=== PATIENT | female | born 2000 ===

== ENCOUNTER 2024-03-05 14:00 | Outpatient (CLI) | payer OTHER | END 2024-03-05 14:05 | disposition home or self-care (01) | LOC: PRENATAL 14:00 | PROVIDERS: ATTEND Obstetrics & Gynecology Maternal & Fetal Medicine | DX: O36.80X0 Pregnancy with inconclusive fetal viability, not applicable or unspecified (principal); Z36.82 Encounter for antenatal screening for nuchal translucency; O34.219 Maternal care for unspecified type scar from previous cesarean delivery; Z36.9 Encounter for antenatal screening, unspecified; Z14.8 Genetic carrier of other disease; Z3A.14 14 weeks gestation of pregnancy ==

== ENCOUNTER → 2024-06-10 12:26 | Outpatient (CLI) | payer OTHER | END | disposition home or self-care (01) | LOC: PRENATAL 12:26 | PROVIDERS: ATTEND Obstetrics & Gynecology Maternal & Fetal Medicine | DX: O26.843 Uterine size-date discrepancy, third trimester (principal); O44.03 Complete placenta previa NOS or without hemorrhage, third trimester; O34.219 Maternal care for unspecified type scar from previous cesarean delivery; Z3A.28 28 weeks gestation of pregnancy ==

== ENCOUNTER 2024-08-01 09:00 | Outpatient (CLI) | payer OTHER | END 2024-08-01 09:01 | disposition home or self-care (01) | LOC: PRENATAL 09:00 | PROVIDERS: ATTEND Obstetrics & Gynecology Maternal & Fetal Medicine | DX: O26.849 Uterine size-date discrepancy, unspecified trimester (principal); O36.8199 Decreased fetal movements, unspecified trimester, other fetus; O34.219 Maternal care for unspecified type scar from previous cesarean delivery; Z3A.35 35 weeks gestation of pregnancy ==

== ENCOUNTER 2024-08-23 09:15 | Inpatient (IN) | payer OTHER ==
[~2024-08-23] VITALS: Ht 160 cm; Wt 3.2 kg
[2024-08-23 10:13] LABS: HEMATOCRIT 38.3 % (36.0-45.00); HEMOGLOBIN 13.2 g/dL (12.0-15.00); MEAN CELL VOLUME 85.7 fL (80.00-100.00); MEAN CORPUSCULAR HEMOGLOBIN 29.5 pg (27.00-32.0); MEAN CORPUSCULAR HGB CONC 34.4 g/dl (32.0-36.0); PLATELET COUNT 177 K/uL (150-450); RED BLOOD COUNT 4.47 M/uL (4.00-6.00); RED CELL DISTRIBUTION WIDTH 15.5 % (11.5-14.5)
[2024-08-23 10:23] LABS: PH,URINE 6.5 (5.0-8.0); URINE APPEARANCE Clear; URINE BILIRRUBIN Negative (NEGATIVE); URINE BLOOD Negative; URINE COLOR Yellow; URINE GLUCOSE Negative (NEGATIVE); URINE KETONE Negative (NEGATIVE); URINE LEUKOCYTE Negative; URINE NITRATE Negative; URINE PROTEIN Negative (NEGATIVE); URINE UROBILINOGEN 0.2 E.U./dl
[2024-08-23 10:24] LABS: URINE BACTERIA 710.6 uL (0.0-1933); URINE EPITHELIAL CELLS 11.5 uL (0.0-38.8); URINE RBC 2.7 uL (0.0-20.8)
[2024-08-23 10:41] LABS: INR 0.94; PARTIAL THROMBOPLASTIN TIME 28.3 SECONDS (22.0-34.0); PROTHROMBIN TIME 10.3 SECONDS (9.0-11.5)
[2024-08-27] MEDS ORDERED: PRENATAL + DHA1 EAC1 PO (07:11)
[2024-08-27] MEDS ORDERED: FOLIC ACID0.8 M1 PO (07:11)
[2024-08-27 07:13] VITALS: BP 117/80
[2024-08-27] MEDS ORDERED: CEFAZOLIN SODIUM 1,000 MG VIAL IV ONE (16:15)
[2024-08-27] MEDS ORDERED: OXYTOCIN 10 UNITS/ML VIAL IV ONE (16:15)
[2024-08-27] MEDS ORDERED: ERYTHROMYCIN BASE OPHT 1GM EACH TUBE OP ONE (16:15)
[2024-08-27] MEDS ORDERED: MORPHINE SULFATE 4 MG/ML VIAL IV ONE (17:45)
[2024-08-27] MEDS ORDERED: PROMETHAZINE HCL 50 MG/ML AMPUL IM PRN (18:00)
[2024-08-27] MEDS ORDERED: MEPERIDINE HCL/PF 50 MG/ML VIAL IM PRN (18:00)
[2024-08-27 19:20] VITALS: BP 118/77
[2024-08-28 02:01] VITALS: BP 129/82
[2024-08-28 05:53] VITALS: BP 118/81
[2024-08-28 06:19] LABS: HEMATOCRIT 36.6 % (36.0-45.00); HEMOGLOBIN 12.5 g/dL (12.0-15.00); MEAN CELL VOLUME 87.5 fL (80.00-100.00); MEAN CORPUSCULAR HEMOGLOBIN 29.9 pg (27.00-32.0); MEAN CORPUSCULAR HGB CONC 34.1 g/dl (32.0-36.0); PLATELET COUNT 143 K/uL (150-450); RED BLOOD COUNT 4.18 M/uL (4.00-6.00)
[2024-08-28] MEDS ORDERED: OxyCODONE HCL/APAP UD (PERCOCET) PO PRN (08:00)
[2024-08-28 08:59] VITALS: BP 129/80
[2024-08-28] MEDS ORDERED: DOCUSATE SODIUM 100MG CAP PO SCH (09:00)
[2024-08-28] MEDS ORDERED: SIMETHICONE 125 MG CAPSULE PO SCH (09:00)
[2024-08-28] MEDS ORDERED: PNV,CALCIUM 72/IRON/FOLIC ACID 1 TAB TABLET PO SCH (09:00)
[2024-08-28 16:00] VITALS: BP 116/80
[2024-08-29 02:40] VITALS: BP 117/70
[2024-08-29 08:59] VITALS: BP 120/67
[2024-08-29 12:50] VITALS: BP 119/79
[2024-08-29] MEDS ORDERED: FF) RHO(D) IMMUNE GLOBULIN (POM) IM STA (14:47)
[2024-08-29 17:06] VITALS: BP 123/76
[2024-08-29 21:15] VITALS: BP 108/66
[2024-08-30 00:20] VITALS: BP 109/75
[2024-08-30 10:38] VITALS: BP 127/77
== END 2024-08-30 16:40 | disposition home or self-care (01) | DRG 785 ==
LOC: OB/GYN 08-27 07:00 → O/R 08-27 15:54 → OB/GYN 08-27 17:03
PROVIDERS: ADMIT Obstetrics & Gynecology; ATTEND Obstetrics & Gynecology
PROC: 0UB70ZZ Excision of Bilateral Fallopian Tubes, Open Approach (ICD-10-PCS; 2024-08-27)
PROC: 4A1HXCZ Monitoring of Products of Conception, Cardiac Rate, External Approach (ICD-10-PCS; 2024-08-27)
PROC: 10D00Z1 Extraction of Products of Conception, Low, Open Approach (ICD-10-PCS; principal; 2024-08-27 07:00)
DX: O34.211 Maternal care for low transverse scar from previous cesarean delivery (principal); Z30.2 Encounter for sterilization; Z3A.39 39 weeks gestation of pregnancy; Z37.0 Single live birth; Z20.822 Contact with and (suspected) exposure to COVID-19